=== PATIENT | male | born 1980 | race Caucasian/White ===

== ENCOUNTER → 2018-03-31 | Outpatient (CLI) | payer OTHER ==
[2018-03-31 11:28] LABS: Basophils % (A) 1 %; Eosinophils # (A) 0.1 k/uL (0-0.7); Eosinophils % (A) 1 %; HCT 38.2 % (39.0-53.0); HGB 12.6 gm/dL (13.0-17.5); Lymphocytes # (A) 1.1 k/uL (1.0-4.8); Lymphocytes % (A) 14 %; MCH 27.8 pg (25.0-35.0); MCV 84.2 fL (80.0-100.0); Mean Platelet Volume 6.8; Monocytes # (A) 0.4 k/uL (0-1.0); Monocytes % (A) 6 %; Neutrophils # (A) 5.8 k/uL (1.3-7.7); Neutrophils % (A) 78 %; Platelet Count 375 k/uL (150-450); RBC 4.53 m/uL (4.30-5.90); RDW 12.5 % (11.5-15.5); WBC 7.5 k/uL (3.8-10.6)
[2018-03-31 11:33] LABS: Total Eosinophil Count 67 #EOS/uL (150-300)
== END | disposition home or self-care (01) ==
LOC: LABWHC1 10:49
PROVIDERS: ATTEND Internal Medicine Critical Care Medicine
DX: J45.909 Unspecified asthma, uncomplicated (principal)
CPT/HCPCS: 36415; 82785; 85008; 85025

== ENCOUNTER → 2019-05-29 | Outpatient (CLI) | payer OTHER ==
--- NOTE | 2019-05-29 14:04 | CT ---
EXAMINATION TYPE: CT brain wo con DATE OF EXAM: 05/29/2019 COMPARISON: None. HISTORY: Partial Epilepsy/hydrocephalus/ shunt. CT DLP: 1254 mGycm. Automated Exposure Control for Dose Reduction was Utilized. TECHNIQUE: CT scan of the head is performed without contrast. FINDINGS: There is a right parietal fredi hole with DEMI CHEF shunt catheter terminating centrally axial im age 34 . 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 Sulcal prominence of the bilateral parietal-occipital regions. No hydrocephalus is present. Slight ly low-lying cerebellar tonsils are seen without definitive greater than 5 mm inferior descent. Visua lized sinuses are clear and the globes are intact. Patchy soft tissue density left external auditory canal is felt to reflect cerumen. IMPRESSION: No hydrocephalus. Congenital abnormalities correlate with outside MRI. Moderate parietal /occipital atrophy.
--- NOTE | 2019-05-29 14:07 | XR ---
EXAMINATION TYPE: XR skull limited, XR abdomen 1V, XR chest 1V DATE OF EXAM: 05/29/2019 COMPARISON: Chest x-ray March 31, 2018. HISTORY: [employer] shunt. History of seizures. TECHNIQUE: 2 view skull. Single frontal view chest. 2 supine frontal views abdomen. FINDINGS: Two-view skull show a band in right sided shunt catheters. There is right parietal [employer] shunt catheter contiguous in course in the right neck. Contiguous [employer] shunt catheter overlies the right chest wall. Lungs are clear. The lung volumes are pre sent. Cardiac silhouette size is stable and enlarged. There is shunt catheter terminating in the lateral left upper to mid abdomen overlying left 10th rib. There is overall nonobstructive bowel gas pattern. Dextroconvex scoliotic curvature centered lumbosa cral junction. Deformity bilateral hip joints with dislocation. Abandoned shunt catheter fragment in the pelvis. Cano catheter overlies pubic symphysis and pelvis. IMPRESSION: Intact [employer] shunt catheter as detailed above.
== END | disposition home or self-care (01) ==
LOC: RADCTMAIN 12:42
PROVIDERS: ATTEND Psychiatry & Neurology Neurology
DX: G40.109 Localization-related (focal) (partial) symptomatic epilepsy and epileptic syndromes with simple partial seizures, not intractable, without status epilepticus (principal); G91.9 Hydrocephalus, unspecified; Z98.2 Presence of cerebrospinal fluid drainage device
CPT/HCPCS: 70250; 70450; 71045; 74018